=== PATIENT | female | born 1990 | race Caucasian/White ===

== ENCOUNTER 2017-11-08 18:17 | Emergency (ER) | payer BC ==
[2017-11-08 18:49] VITALS: BP 114/78
--- NOTE | 2017-11-08 19:40 | EDM.PDOC ---
ED HPI GENERAL MEDICAL PROBLEM - General Chief Complaint: Respiratory Problem Stated Complaint: COUGH,FEVER HURTS TO BREATH/PAIN Time Seen by Provider: 11/08/17 19:22 Source of Information: Reports: Patient - History of Present Illness INITIAL COMMENTS - FREE TEXT/NARRATIVE: Patient is here for evaluation of headache, diffuse myalgias and dry cough. She was evaluated in the clinic yesterday where she tested negative for influenza and strep. Patient has not been eating, she has been tolerating fluids but has not been drinking much fluids. Cough has worsened and become slightly productive for clear/yellow mucus. She's had more congestion and rhinorrhea. She denies he did but no episodes of vomiting. She had one episode of diarrhea today. LMP 10/28/2017. 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 Hernandez - Recreational Drug Use Recreational Drug Use: No ED ROS GENERAL - Review of Systems Review Of Systems: See Below Constitutional: Reports: Fever, Chills, Malaise, Weakness, Fatigue HEENT: Reports: Sinus Problem. Denies: Ear Discharge, Ear Pain, Throat Pain, Throat Swelling Respiratory: Reports: Pleuritic Chest Pain, Cough. Denies: Shortness of Breath , Wheezing, Sputum, Hemoptysis Cardiovascular: Reports: No Symptoms GI/Abdominal: Reports: Decreased Appetite. Denies: Abdominal Pain, Diarrhea, Nausea, Vomiting Musculoskeletal: Reports: Back Pain, Muscle Pain. Denies: Neck Pain Skin: Reports: No Symptoms Neurological: Reports: No Symptoms Psychiatric: Reports: No Symptoms ED EXAM, GENERAL - Physical Exam Exam: See Below Exam Limited By: No Limitations General Appearance: Alert, WD/WN, Mild Distress, Other (Patient is ill in appearance) Ears: Normal External Exam, Normal Canal, Normal TMs Nose: Normal Inspection, Nasal Drainage (Periodic) Throat/Mouth: Normal Inspection, Normal Oropharynx, Other (Clear postnasal drainage) Head: Atraumatic, Normocephalic Neck: Normal Inspection, Supple, Tender Lateral (left). No: Lymphadenopathy (L) , Lymphadenopathy (R) Respiratory/Chest: No Respiratory Distress, No Accessory Muscle Use, Wheezing ( Mild/scattered bilaterally). No: Crackles, Rales, Rhonchi Cardiovascular: Normal Peripheral Pulses, Regular Rate, Rhythm, No Murmur GI/Abdominal: Normal Bowel Sounds, Soft, Tender (Diffuse/mild) Back Exam: Normal Inspection, Paraspinal Tenderness (Muscular). No: Vertebral Tenderness Extremities: Normal Inspection, Normal Range of Motion Neurological: Alert, Oriented, CN II-XII Intact Psychiatric: Normal Affect, Normal Mood Skin Exam: Warm, Dry, Intact Lymphatic: No Adenopathy Course - Vital Signs Last Recorded V/S: Last Vital Signs Temp 101.7 F H 11/08/17 18:46 Pulse 85 11/08/17 18:46 Resp 20 11/08/17 18:46 BP 114/78 11/08/17 18:46 Pulse Ox 94 L 11/08/17 18:46 - Orders/Labs/Meds Orders: Active Orders 24 hr Category Date Time Status CXR [Chest 2V] [CR] Stat Exams 11/08/17 21:53 Taken Sodium Chloride 0.9% [Normal Saline] 1,000 ml Med 11/08/17 21:29 Active IV ONETIME Medication Orders Sodium Chloride (Normal Saline) 1,000 mls @ 250 mls/hr IV ONETIME ONE Stop: 11/09/17 01:28 Last Admin: 11/08/17 21:52 Dose: 250 mls/hr Labs: Laboratory Tests 11/08/17 11/08/17 11/08/17 Range/Units 19:47 19:47 21:10 WBC 11.98 H (3.98-10.04) K/mm3 RBC 4.86 (3.98-5.22) M/mm3 Hgb 15.0 (11.2-15.7) gm/L Hct 43.9 (34.1-44.9) % MCV 90.3 (79.4-94.8) fl MCH 30.9 (25.6-32.2) pg MCHC 34.2 (32.2-35.5) g/dl RDW Std Deviation 42.5 (36.4-46.3) fL Plt Count 220 (182-369) K/mm3 MPV 9.4 (9.4-12.3) fl Neutrophils % (Manual) 60 (40-60) % Band Neutrophils % 5 (0-10) % Lymphocytes % (Manual) 26 (20-40) % Atypical Lymphs % 0 % Monocytes % (Manual) 7 (2-10) % Eosinophils % (Manual) 2 (0.7-5.8) % Basophils % (Manual) 0 L (0.1-1.2) Platelet Estimate Adequate RBC Morph Comment Normal Sodium 136 (136-145) mEq/L Potassium 3.5 (3.5-5.1) mEq/L Chloride 101 (98-107) mEq/L Carbon Dioxide 25 (21-32) mEq/L Anion Gap 13.5 (5-15) BUN 12 (7-18) mg/dL Creatinine 0.9 (0.55-1.02) mg/dL Est Cr Clr Drug Dosing 74.26 mL/min Estimated GFR (MDRD) > 60 (>60) mL/min BUN/Creatinine Ratio 13.3 L (14-18) Glucose 86 (74-106) mg/dL Calcium 9.1 (8.5-10.1) mg/dL Total Bilirubin 0.9 (0.2-1.0) mg/dL AST 16 (15-37) U/L ALT 40 (14-59) U/L Alkaline Phosphatase 86 (46-116) U/L C-Reactive Protein 4.9 H* (<1.0) mg/dL Total Protein 7.2 (6.4-8.2) g/dl Albumin 3.7 (3.4-5.0) g/dl Globulin 3.5 gm/dL Albumin/Globulin Ratio 1.1 (1-2) Urine Color Dark yellow (Yellow) Urine Appearance Cloudy H (Clear) Urine pH 6.0 (5.0-8.0) Ur Specific [place] 1.020 (1.005-1.030) Urine Protein 1+ H (Negative) Urine Glucose (UA) Negative (Negative) Urine Ketones 3+ H (Negative) Urine Occult Blood Negative (Negative) Urine Nitrite Positive H (Negative) Urine Bilirubin 2+ H (Negative) Urine Urobilinogen 2.0 H (0.2-1.0) Ur Leukocyte Esterase Negative (Negative) Urine RBC Not seen (0-5) /hpf Urine WBC 0-5 (0-5) /hpf Ur Epithelial Cells 0-5 (0-5) /hpf Urine Bacteria Few (FEW) /hpf Urine Mucus Many H (FEW) /hpf Urine HCG, Qual (NEGATIVE) 11/08/17 Range/Units 21:10 WBC (3.98-10.04) K/mm3 RBC (3.98-5.22) M/mm3 Hgb (11.2-15.7) gm/L Hct (34.1-44.9) % MCV (79.4-94.8) fl MCH (25.6-32.2) pg MCHC (32.2-35.5) g/dl RDW Std Deviation (36.4-46.3) fL Plt Count (182-369) K/mm3 MPV (9.4-12.3) fl Neutrophils % (Manual) (40-60) % Band Neutrophils % (0-10) % Lymphocytes % (Manual) (20-40) % Atypical Lymphs % % Monocytes % (Manual) (2-10) % Eosinophils % (Manual) (0.7-5.8) % Basophils % (Manual) (0.1-1.2) Platelet Estimate RBC Morph Comment Sodium (136-145) mEq/L Potassium (3.5-5.1) mEq/L Chloride (98-107) mEq/L Carbon Dioxide (21-32) mEq/L Anion Gap (5-15) BUN (7-18) mg/dL Creatinine (0.55-1.02) mg/dL Est Cr Clr Drug Dosing mL/min Estimated GFR (MDRD) (>60) mL/min BUN/Creatinine Ratio (14-18) Glucose (74-106) mg/dL Calcium (8.5-10.1) mg/dL Total Bilirubin (0.2-1.0) mg/dL AST (15-37) U/L ALT (14-59) U/L Alkaline Phosphatase (46-116) U/L C-Reactive Protein (<1.0) mg/dL Total Protein (6.4-8.2) g/dl Albumin (3.4-5.0) g/dl Globulin gm/dL Albumin/Globulin Ratio (1-2) Urine Color (Yellow) Urine Appearance (Clear) Urine pH (5.0-8.0) Ur Specific [place] (1.005-1.030) Urine Protein (Negative) Urine Glucose (UA) (Negative) Urine Ketones (Negative) Urine Occult Blood (Negative) Urine Nitrite (Negative) Urine Bilirubin (Negative) Urine Urobilinogen (0.2-1.0) Ur Leukocyte Esterase (Negative) Urine RBC (0-5) /hpf Urine WBC (0-5) /hpf Ur Epithelial Cells (0-5) /hpf Urine Bacteria (FEW) /hpf Urine Mucus (FEW) /hpf Urine HCG, Qual Negative (NEGATIVE) Meds: Medications Generic Name Dose Route Start Last Admin Trade Name Freq PRN Reason Stop Dose Admin Sodium Chloride 1,000 mls @ 250 mls/hr 11/08/17 21:29 11/08/17 21:52 Normal Saline IV 11/09/17 01:28 250 mls/hr ONETIME ONE Administration Discontinued Medications Generic Name Dose Route Start Last Admin Trade Name Freq PRN Reason Stop Dose Admin Acetaminophen 650 mg 11/08/17 21:53 11/08/17 22:00 Tylenol PO 11/08/17 21:54 650 mg NOW ONE Administration Sodium Chloride 1,000 mls @ 999 mls/hr 11/08/17 19:38 11/08/17 19:51 Normal Saline IV 11/08/17 20:38 999 mls/hr ONETIME ONE Administration Ketorolac Tromethamine 30 mg 11/08/17 19:38 11/08/17 19:50 Toradol IVPUSH 11/08/17 19:39 30 mg ONETIME ONE Administration - Re-Assessments/Exams Free Text/Narrative Re-Assessment/Exam: Patient had 30 mg ketorolac IV and 650 mg Tylenol by mouth and significant improvement in symptoms with this as well as 2 L of fluid. WBC 11,980 with 60% neutrophils and 5 bands. CRP 4.9. CXR reviewed with Dr Rivera, no sign of consolidation or infiltrate. Still suspect viral etiology even though influenza was negative in the clinic. These can be false negative as well. Recommend supportive care of rest/fluids/alternating Tylenol and ibuprofen as needed for fever/myalgias. Patient is to follow-up in the clinic if symptoms not significantly were improved over the next few days or certainly return to the emergency room if needed. 11/08/17 22:41 11/08/17 23:28 Departure - Departure Time of Disposition: 23:29 Disposition: Home, Self-Care 01 Condition: Good Clinical Impression: Cough, Fever - Discharge Information Instructions: Cough, Adult, [id number], Cough, Adult Referrals: PCP,None [Primary Care Provider] - Forms: ED Department Discharge Additional Instructions: You'll be discharged home. I recommend that you increase your fluid intake. Alternate Tylenol and ibuprofen as needed for fever, headaches and muscle aches. Resume diet as you feel better, start with a very bland diet, no sugar/spice/ dairy foods. Follow-up in clinic if symptoms not significantly improved over the next few days. Certainly return to emergency room if any worsening. - My Orders Last 24 Hours: My Active Orders 11/08/17 21:29 Sodium Chloride 0.9% [Normal Saline] 1,000 ml IV ONETIME 11/08/17 21:53 CXR [Chest 2V] [CR] Stat - Assessment/Plan Last 24 Hours: My Active Orders 11/08/17 21:29 Sodium Chloride 0.9% [Normal Saline] 1,000 ml IV ONETIME 11/08/17 21:53 CXR [Chest 2V] [CR] Stat
[2017-11-08] MEDS: Ketorolac 30 MG/ML SDV IVPUSH ONE (19:50)
[2017-11-08] MEDS: Sodium Chloride 0.9% 1,000 ML IV ONE ×2 (19:51→21:52)
[2017-11-08] MEDS: Acetaminophen 325 MG Tab PO ONE (22:00)
--- NOTE | 2017-11-09 07:16 | CR ---
Chest: Two views of the chest were obtained. Comparison: No prior chest x-ray. Heart size and mediastinum are normal. Left-sided perihilar markings are mildly increased. Lungs otherwise are clear. Bony structures are unremarkable. Impression: 1. Mild increased left-sided perihilar markings suspicious for focal bronchitis or peribronchial pneumonia. 2. Chest x-ray is otherwise unremarkable. Diagnostic code #3
== END 2017-11-08 23:35 | disposition home or self-care (01) ==
LOC: JD.ED 18:17
DX: R50.9 Fever, unspecified (principal); R05 Cough; F17.210 Nicotine dependence, cigarettes, uncomplicated; Z79.899 Other long term (current) drug therapy
CPT/HCPCS: 36415; 71046; 80053; 81001; 81025; 85025; 86140; 96361; 96374; 99284; A9270; J1885; J7040

== ENCOUNTER 2018-11-15 08:00 | Inpatient (IN) | payer BC ==
[2018-11-20] MEDS ORDERED: ceFAZolin 2 GM in Premix Bag 1 BAG IV ONE (04:52)
[2018-11-20] MEDS ORDERED: Citric Acid/Sodium Citrate Solution 30 ML Cup PO ONE (04:52)
[2018-11-20] MEDS ORDERED: Sodium Chloride 0.9% 10 ML Syringe FLUSH PRN (04:52)
[2018-11-20] MEDS ORDERED: Metoclopramide 10 MG/2 ML SDV IVPUSH ONE (04:52)
[2018-11-20] MEDS ORDERED: Nalbuphine 20 MG/ML 1 ML Syringe IVPUSH PRN (04:52)
[2018-11-20] MEDS ORDERED: Lactated Ringers 1,000 ML IV SCH (05:00)
[2018-11-20] MEDS ORDERED: Oxytocin/Lactated Ringers 10 UNIT/1,000 ML BAG IV SCH (05:00)
[2018-11-20] MEDS ORDERED: Citric Acid/Sodium Citrate Solution 30 ML Cup ONE (06:12)
[2018-11-20] MEDS ORDERED: Ondansetron 4 MG/2 ML SDV ONE (06:17)
[2018-11-20] MEDS ORDERED: Lactated Ringers 2,000 ML ONE (06:17)
[2018-11-20] MEDS ORDERED: Oxytocin 10 Units/1 ML SDV ONE (06:17)
[2018-11-20] MEDS ORDERED: Ketorolac 30 MG/ML SDV ONE (06:17)
[2018-11-20] MEDS ORDERED: ceFAZolin 1 GM Vial ONE (06:17)
[2018-11-20] MEDS ORDERED: Morphine PF 1 MG/ML Amp ONE (06:18)
[2018-11-20] MEDS ORDERED: Bupivacaine 0.75%/D5W 2 ML Amp ONE (06:24)
--- NOTE | 2018-11-20 06:36 | PCM.PREANE ---
Preanesthetic Assessment - Procedure Proposed Procedure: repeat c section - Anesthesia/Transfusion/Family Hx Anesthesia History: Prior Anesthesia Without Reaction Family History of Anesthesia Reaction: No Transfusion History: No Prior Transfusion(s) Type of Transfusion Reactions: Reports: Unknown - Review of Systems General: No Symptoms Pulmonary: Cough (has a cold the last month-thick dark yellow) Cardiovascular: No Symptoms Gastrointestinal: Nausea (this am- nerves) Neurological: No Symptoms Other: Reports: None - Physical Assessment NPO Status Date: 11/19/18 NPO Status Time: 23:55 Pulse: 89 O2 Sat by Pulse Oximetry: 98 Respiratory Rate: 16 Blood Pressure: 114/75 Temperature: 98.6 F Vital Signs: Last Vital Signs Temp 98.6 F 11/20/18 05:48 Pulse 89 11/20/18 05:48 Resp 16 11/20/18 05:48 BP 114/75 11/20/18 05:48 Pulse Ox 98 11/20/18 05:48 Height: 5 ft 2 in Weight: 86.545 kg ASA Class: 2 Mental Status: Alert & Oriented x3 Airway Class: Mallampati = 1 Dentition: Reports: Normal Dentition Thyro-Mental Finger Breadths: 3 Mouth Opening Finger Breadths: 3 ROM/Head Extension: Full Lungs: Clear to Auscultation, Normal Respiratory Effort Cardiovascular: Regular Rate, Regular Rhythm - Lab Values: Laboratory Last Values WBC 18.31 K/mm3 (3.98-10.04) H 11/18/18 10:47 RBC 3.95 M/mm3 (3.98-5.22) L 11/18/18 10:47 Hgb 12.7 gm/L (11.2-15.7) 11/18/18 10:47 Hct 37.2 % (34.1-44.9) 11/18/18 10:47 MCV 94.2 fl (79.4-94.8) 11/18/18 10:47 MCH 32.2 pg (25.6-32.2) 11/18/18 10:47 MCHC 34.1 g/dl (32.2-35.5) 11/18/18 10:47 RDW Std Deviation 46.0 fL (36.4-46.3) 11/18/18 10:47 Plt Count 532 K/mm3 (182-369) H 11/18/18 10:47 MPV 10.1 fl (9.4-12.3) 11/18/18 10:47 Neut % (Auto) 72.8 % (34.0-71.1) H 11/18/18 10:47 Lymph % (Auto) 16.9 % (19.3-51.7) L 11/18/18 10:47 [place] % (Auto) 7.0 % (4.7-12.5) 11/18/18 10:47 Eos % (Auto) 2.2 (0.7-5.8) 11/18/18 10:47 Baso % (Auto) 0.2 % (0.1-1.2) 11/18/18 10:47 Neut # (Auto) 13.32 K/mm3 (1.56-6.13) H 11/18/18 10:47 Lymph # (Auto) 3.09 K/mm3 (1.18-3.74) 11/18/18 10:47 [place] # (Auto) 1.28 K/mm3 (0.24-0.36) H 11/18/18 10:47 Eos # (Auto) 0.41 K/mm3 (0.04-0.36) H 11/18/18 10:47 Baso # (Auto) 0.04 K/mm3 (0.01-0.08) 11/18/18 10:47 Manual Slide Review Normal smear 11/18/18 10:47 Blood Type A POSITIVE 11/18/18 10:47 Gel Antibody Screen Negative 11/18/18 10:47 - Allergies Allergies/Adverse Reactions: Allergies Allergy/AdvReac Type Severity Reaction Status Date / Time No Known Allergies Allergy Verified 09/22/16 08:51 - Blood Blood Available: No - Acknowledgements Anesthesia Type Planned: Spinal Pt an Appropriate Candidate for the Planned Anesthesia: Yes Alternatives and Risks of Anesthesia Discussed w Pt/Guardian: Yes Pt/Guardian Understands and Agrees with Anesthesia Plan: Yes PreAnesthesia Questionnaire HEENT History: Reports: None Cardiovascular History: Reports: None Respiratory History: Reports: Other (See Below) (has a cold) Gastrointestinal History: Reports: GERD (with preg) Genitourinary History: Reports: None 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: , Other (See Below) : 3 (38 weeks) Para: 2 Other OB/BYN History: Prior Section Musculoskeletal History: Reports: None Psychiatric History: Reports: Anxiety, Depression, Suicide Attempt Other Psychiatric History: On Prozac for depression - Infectious Disease History Infectious Disease History: 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, Human Papilloma Virus (HPV), Other (See Below) Other Infectious Disease History: herpes simplex 2 - Past Surgical History HEENT Surgical History: Reports: Adenoidectomy, Tonsillectomy, Other (See Below) Other HEENT Surgeries/Procedures: grafting surgery to bilateral ears due to tubes, chronic ear infections Female Surgical History: Reports: Section - SUBSTANCE USE Smoking Status *Q: Current Every Day Smoker Tobacco Use Within Last Twelve Months: Cigarettes Second Hand Smoke Exposure: Yes Days Per Week of Alcohol Use: 0 Recreational Drug Use History: No - HOME MEDS Home Medications: Home Meds FLUoxetine [PROzac] 20 mg PO DAILY 09/22/16 [History] Loratadine [Allergy] 10 mg PO DAILY PRN 09/22/16 [History] PNV95/Ferrous Fumarate/FA [ Tablet] 1 each PO DAILY 08/30/18 [History] Nicotine [Nicotine Patch] 14 mg TD DAILY 11/20/18 [History] buPROPion [Wellbutrin SR] 150 mg PO DAILY 11/20/18 [History] - CURRENT (IN HOUSE) MEDS Current Meds: Current Medications Lactated Ringer's (Ringers, Lactated) 1,000 mls @ 125 mls/hr IV ASDIRECTED CHEYANNE Oxytocin/Lactated Ringer's (Pitocin In Lr 10 Units/1,000 Ml) 10 unit in 1,000 mls @ 100 mls/hr IV ASDIRECTED CHEYANNE; Protocol Nalbuphine HCl (Nubain) 10 mg IVPUSH Q2H PRN PRN Reason: pain Sodium Chloride (Saline Flush) 10 ml FLUSH ASDIRECTED PRN PRN Reason: Keep Vein Open Discontinued Medications Bupivacaine HCl/Dextrose (Marcaine 0.75% Spinal) Confirm Administered Dose 2 ml .ROUTE .STK-MED ONE Stop: 11/20/18 06:25 Cefazolin Sodium (Ancef) Confirm Administered Dose 2 gm .ROUTE .STK-MED ONE Stop: 11/20/18 06:18 Citric Acid/Sodium Citrate (Bicitra Solution) 30 ml PO ONETIME ONE Stop: 11/20/18 04:53 Citric Acid/Sodium Citrate (Bicitra Solution) Confirm Administered Dose 30 ml .ROUTE .STK-MED ONE Stop: 11/20/18 06:13 Cefazolin Sodium/Dextrose 2 gm (/ Premix) 50 mls @ 100 mls/hr IV ONETIME ONE Stop: 11/20/18 05:21 Lactated Ringer's (Ringers, Lactated) Confirm Administered Dose 2,000 mls @ as directed .ROUTE .STK-MED ONE Stop: 11/20/18 06:18 Lidocaine HCl (Xylocaine-Mpf 1%) Confirm Administered Dose 5 mls @ as directed .ROUTE .STK-MED ONE Stop: 11/20/18 06:25 Ketorolac Tromethamine (Toradol) Confirm Administered Dose 30 mg .ROUTE .STK- MED ONE Stop: 11/20/18 06:18 Metoclopramide HCl (Reglan) 10 mg IVPUSH ONETIME ONE Stop: 11/20/18 04:53 Morphine Sulfate (Duramorph Pf) Confirm Administered Dose 1 mg .ROUTE .STK-MED ONE Stop: 11/20/18 06:19 Ondansetron HCl (Zofran) Confirm Administered Dose 4 mg .ROUTE .STK-MED ONE Stop: 11/20/18 06:18 Oxytocin (Pitocin) Confirm Administered Dose 10 unit .ROUTE .STK-MED ONE Stop: 11/20/18 06:18
[2018-11-20] MEDS ORDERED: Bupivacaine 0.5% 30 ML SDV ONE (07:17)
[2018-11-20] MEDS ORDERED: ePHEDrine/Normal Saline 25 MG/5 ML Syringe ONE (08:02)
[2018-11-20] MEDS ORDERED: diphenhydrAMINE 50 MG/ML SDV IVPUSH PRN ×2 (08:04→09:59)
[2018-11-20] MEDS ORDERED: Ondansetron 4 MG/2 ML SDV IVPUSH PRN (08:04)
[2018-11-20] MEDS ORDERED: fentaNYL 100 MCG/2 ML SDV IVPUSH PRN (08:04)
--- NOTE | 2018-11-20 08:42 | PCM.OPNOTE ---
- General Post-Op/Procedure Note Date of Surgery/Procedure: 11/20/18 Operative Procedure(s): repeat section Findings: viable male, weight 7#1oz, 9/9 APGARS, at 0810 Pre Op Diagnosis: prior with very thin lower uterine segment Post-Op Diagnosis: Same Anesthesia Technique: Spinal Primary Surgeon: Nolvia Llanes Anesthesia Provider: Polo Ventura Leaf Tinner: Justo Gipson Fluid Replacement, Intraop: 2,400 Output, Urine Amount: 75 EBL in mLs: 700 Complications: None Condition: Good Free Text/Narrative:: The patient was taken to the operating room where epidural anesthesia was dosed to surgical levels without difficulty. The patient was prepped and draped in the usual sterile fashion in the dorsal supine position with a leftward tilt. A Pfannenstiel skin incision was made with the scalpel and carried through to the underlying layer of fascia. The fascia was incised in the midline and extended laterally using Carter scissors. Pasha clamps were used to elevate the superior aspect of the fascial incision, which was elevated, and the underlying rectus muscles were dissected off bluntly and using Carter scissors. Attention was then turned to the inferior aspect of the fascial incision, which in similar fashion was grasped with Pasha clamps, elevated, and the underlying rectus muscles were dissected off bluntly and using the carter. The rectus muscles were dissected in the midline. The peritoneum was entered bluntly; this incision was extended superiorly and inferiorly with good visualization of the bladder. The bladder blade was inserted. The vesicouterine peritoneum was identified and entered sharply using Metzenbaum scissors. This incision was extended laterally and the bladder flap was created digitally. The bladder blade was reinserted. The somewhat thin lower uterine segment was incised in a transverse fashion using the scalpel and with digital traction. Clear fluid was noted. The was subsequently delivered by flexing the head to the incision. Body and shoulders followed without difficulty. The cord was clamped and cut. The infant was subsequently handed to the awaiting coiled tubing supervisor whose presence had been requested.. The placenta was delivered spontaneously intact with a three-vessel cord noted. The uterus was exteriorized and cleared of all clots and debris. The uterine incision was repaired in 2 layers using 0 monocryl. Hemostasis was visualized. Hemostasis was visualized bilaterally. The uterus was returned to the abdomen. The uterine incision was reexamined and it was noted to be hemostatic. The pelvis was copiously irrigated. The fascia was closed with 1 PDS suture, and the skin was closed with 3-0 monocryl. Sponge, lap, and instrument counts were correct x2. The patient was stable at the completion of the procedure and was subsequently transferred to the recovery room in stable condition.
--- NOTE | 2018-11-20 08:44 | PCM.POSTAN ---
POST ANESTHESIA ASSESSMENT - MENTAL STATUS Mental Status: Alert, Oriented - VITAL SIGNS Pulse Rate: 86 SaO2: 96 Resp Rate: 9 Blood Pressure: 115/65 Temperature: 97.7 F - RESPIRATORY Respiratory Status: Respiratory Rate WNL, Airway Patent, O2 Saturation Stable, Supplemental Oxygen - CARDIOVASCULAR CV Status: Pulse Rate WNL, Blood Pressure Stable - GASTROINTESTINAL GI Status: No Symptoms - PAIN Pain Score: 0 - POST OP HYDRATION Hydration Status: Adequate & Stable
[2018-11-20] MEDS ORDERED: Dextrose 5%-Lactated Ringers 1,000 ML IV SCH (09:59)
[2018-11-20] MEDS ORDERED: Lanolin 100% Cream 7 GM Tube TOP PRN (09:59)
[2018-11-20] MEDS ORDERED: Ibuprofen 600 MG Tab PO PRN (09:59)
[2018-11-20] MEDS ORDERED: Naloxone 0.4 MG/ML SDV IVPUSH PRN (09:59)
[2018-11-20] MEDS ORDERED: ePHEDrine 50 MG/ML SDV IVPUSH PRN (09:59)
[2018-11-20] MEDS: Ketorolac 30 MG/ML SDV IVPUSH SCH ×3 (14:30→20:33)
[2018-11-20] MEDS: Nicotine 14 MG/24 Hr Patch TRDERM SCH (21:49)
[2018-11-20] MEDS: FLUOXETINE 20 MG PO SCH (22:00)
[2018-11-20] MEDS: BUPROPION 150 MG PO SCH (22:00)
[2018-11-21] MEDS: Ketorolac 30 MG/ML SDV IVPUSH SCH (03:12)
[2018-11-21] MEDS: Ibuprofen 600 MG Tab PO PRN ×3 (09:15→21:04)
[2018-11-21] MEDS: BUPROPION 150 MG PO SCH (09:18)
[2018-11-21] MEDS: FLUOXETINE 20 MG PO SCH (09:18)
[2018-11-21] MEDS: Acetaminophen/oxyCODONE 325-5 MG Tab PO PRN (16:12)
[2018-11-22] MEDS: Acetaminophen/oxyCODONE 325-5 MG Tab PO PRN ×2 (00:10→06:54)
[2018-11-22] MEDS: Ibuprofen 600 MG Tab PO PRN (04:06)
--- NOTE | 2018-11-22 07:23 | PCM.PNPP ---
- General Info Date of Service: 11/21/18 Functional Status: Reports: Pain Controlled - Review of Systems General: Reports: No Symptoms HEENT: Reports: No Symptoms Pulmonary: Reports: No Symptoms Cardiovascular: Reports: No Symptoms Gastrointestinal: Reports: No Symptoms Genitourinary: Reports: No Symptoms Musculoskeletal: Reports: No Symptoms Skin: Reports: No Symptoms Neurological: Reports: No Symptoms Psychiatric: Reports: No Symptoms - General Info Date of Service: 11/21/18 - Patient Data Vital Signs - Most Recent: Last Vital Signs Temp 36.9 C 11/22/18 04:01 Pulse 87 11/22/18 04:02 Resp 16 11/22/18 04:01 BP 119/73 11/22/18 04:01 Pulse Ox 96 11/22/18 04:02 Weight - Most Recent: 86.545 kg I&O - Last 24 Hours: Intake & Output 11/21/18 11/22/18 11/22/18 22:59 06:59 14:59 Intake Total 480 Balance 480 Med Orders - Current: Current Medications Bupropion HCl (Wellbutrin Sr) 150 mg PO DAILY [facility] Last Admin: 11/21/18 09:18 Dose: Not Given Diphenhydramine HCl (Benadryl) 25 mg IVPUSH Q6H PRN PRN Reason: Itching or Nausea Last Admin: 11/20/18 12:22 Dose: 25 mg Emollient Ointment (Lansinoh Hpa) 0 gm TOP ASDIRECTED PRN PRN Reason: Sore Nipples Ephedrine Sulfate (Ephedrine Sulfate) 5 mg IVPUSH SEECOMMENT PRN PRN Reason: Other Fluoxetine HCl (Prozac) 20 mg PO DAILY [facility] Last Admin: 11/21/18 09:18 Dose: Not Given Ibuprofen (Motrin) 600 mg PO Q6H PRN PRN Reason: mild pain or fever Last Admin: 11/22/18 04:06 Dose: 600 mg Miscellaneous Information (Remove Patch) 1 ea TRDERM DAILY [facility] Last Admin: 11/21/18 09:18 Dose: Not Given Naloxone HCl (Narcan) 0.1 mg IVPUSH SEECOMMENT PRN PRN Reason: Respiratory Depression Nicotine (Habitrol) 14 mg TRDERM DAILY [facility] Last Admin: 11/20/18 21:49 Dose: Not Given Oxycodone/Acetaminophen (Percocet 325-5 Mg) 2 tab PO Q6H PRN PRN Reason: Pain (moderate 4-6) Last Admin: 11/22/18 06:54 Dose: 2 tab Discontinued Medications Bupivacaine HCl (Marcaine 0.5%) Confirm Administered Dose 30 ml .ROUTE .STK-MED ONE Stop: 11/20/18 07:18 Last Admin: 11/20/18 08:04 Dose: 20 ml Bupivacaine HCl/Dextrose (Marcaine 0.75% Spinal) Confirm Administered Dose 2 ml .ROUTE .STK-MED ONE Stop: 11/20/18 06:25 Cefazolin Sodium (Ancef) Confirm Administered Dose 2 gm .ROUTE .STK-MED ONE Stop: 11/20/18 06:18 Citric Acid/Sodium Citrate (Bicitra Solution) 30 ml PO ONETIME ONE Stop: 11/20/18 04:53 Last Admin: 11/20/18 07:08 Dose: 30 ml Citric Acid/Sodium Citrate (Bicitra Solution) Confirm Administered Dose 30 ml .ROUTE .STK-MED ONE Stop: 11/20/18 06:13 Last Admin: 11/20/18 19:25 Dose: Not Given Diphenhydramine HCl (Benadryl) 25 mg IVPUSH Q6H PRN PRN Reason: pruritis Ephedrine Sulfate (Ephedrine In Ns) Confirm Administered Dose 25 mg .ROUTE .STK- MED ONE Stop: 11/20/18 08:03 Fentanyl (Sublimaze) 50 mcg IVPUSH Q5M PRN PRN Reason: Pain Cefazolin Sodium/Dextrose 2 gm (/ Premix) 50 mls @ 100 mls/hr IV ONETIME ONE Stop: 11/20/18 05:21 Last Admin: 11/20/18 19:25 Dose: Not Given Lactated Ringer's (Ringers, Lactated) 1,000 mls @ 125 mls/hr IV ASDIRECTED [facility] Last Admin: 11/20/18 06:20 Dose: 125 mls/hr Oxytocin/Lactated Ringer's (Pitocin In Lr 10 Units/1,000 Ml) 10 unit in 1,000 mls @ 100 mls/hr IV ASDIRECTED [facility]; Protocol Lactated Ringer's (Ringers, Lactated) Confirm Administered Dose 2,000 mls @ as directed .ROUTE .STK-MED ONE Stop: 11/20/18 06:18 Lidocaine HCl (Xylocaine-Mpf 1%) Confirm Administered Dose 5 mls @ as directed .ROUTE .STK-MED ONE Stop: 11/20/18 06:25 Dextrose/Lactated Ringer's (Dextrose 5%-Lactated Ringers) 1,000 mls @ 125 mls/ hr IV ASDIRECTED [facility] Stop: 11/20/18 17:58 Ibuprofen (Motrin) 600 mg PO Q6H PRN PRN Reason: mild pain or fever Ketorolac Tromethamine (Toradol) Confirm Administered Dose 30 mg .ROUTE .STK- MED ONE Stop: 11/20/18 06:18 Ketorolac Tromethamine (Toradol) 30 mg IVPUSH Q6H [facility] Stop: 11/20/18 22:00 Last Admin: 11/20/18 19:24 Dose: Not Given Ketorolac Tromethamine (Toradol) 30 mg IVPUSH Q6H [facility] Stop: 11/21/18 02:31 Last Admin: 11/21/18 03:12 Dose: 30 mg Metoclopramide HCl (Reglan) 10 mg IVPUSH ONETIME ONE Stop: 11/20/18 04:53 Last Admin: 11/20/18 07:08 Dose: 10 mg Morphine Sulfate (Duramorph Pf) Confirm Administered Dose 1 mg .ROUTE .STK-MED ONE Stop: 11/20/18 06:19 Nalbuphine HCl (Nubain) 10 mg IVPUSH Q2H PRN PRN Reason: pain Ondansetron HCl (Zofran) Confirm Administered Dose 4 mg .ROUTE .STK-MED ONE Stop: 11/20/18 06:18 Ondansetron HCl (Zofran) 4 mg IVPUSH ONETIME PRN PRN Reason: Nausea/Vomiting Oxytocin (Pitocin) Confirm Administered Dose 10 unit .ROUTE .STK-MED ONE Stop: 11/20/18 06:18 Sodium Chloride (Saline Flush) 10 ml FLUSH ASDIRECTED PRN PRN Reason: Keep Vein Open - Infant Interaction Support Person: - Recovery Exam Fundal Tone: Firm Fundal Level: 2 Fingerbreadths Below Umbilicus Fundal Placement: Midline Lochia Amount: Small Lochia Color: Rubra/Red Perineum Description: Intact, Minimal Bruising/Swelling Episiotomy/Laceration: None Bladder Status: Voiding Urinary Elimination: Voided - Exam General: Alert, Oriented HEENT: Pupils Equal Neck: Supple Lungs: Clear to Auscultation, Normal Respiratory Effort Cardiovascular: Regular Rate, Regular Rhythm GI/Abdominal Exam: Normal Bowel Sounds, Soft, Non-Tender, No Organomegaly, No Distention, No Abnormal Bruit, No Mass, Pelvis Stable Extremities: Normal Inspection, Normal Range of Motion, Non-Tender, No Pedal Edema, Normal Capillary Refill Skin: Warm, Dry, Intact Wound/Incisions: Healing Well Neurological: No New Focal Deficit Psy/Mental Status: Alert, Normal Affect, Normal Mood - Problem List Review Problem List Initiated/Reviewed/Updated: Yes - My Orders Last 24 Hours: My Active Orders 11/21/18 09:00 Remove Patch 1 ea TRDERM DAILY 11/21/18 15:34 Acetaminophen/oxyCODONE [Percocet 325-5 MG] 2 tab PO Q6H PRN - Assessment Assessment:: Term POD1 Doing great. Probable discharge tomorrow
[2018-11-22] MEDS: Nicotine 14 MG/24 Hr Patch TRDERM SCH (08:17)
[2018-11-22] MEDS: FLUOXETINE 20 MG PO SCH (08:18)
[2018-11-22] MEDS: BUPROPION 150 MG PO SCH (08:18)
[2018-11-22 08:41] VITALS: BP 128/69
--- NOTE | 2018-11-23 05:46 | PCM.HPR ---
H & P Addendum review - H & P Addendum Review Date of Original H & P: 11/06/18 (Paper copy on chart from clinic) Date Reviewed: 11/20/18 Time Reviewed: 07:00 Patient was Examined: No Changes
== END 2018-11-22 10:20 | disposition home or self-care (01) | DRG 540 ==
LOC: JD.OB 11-20 05:21
PROVIDERS: ADMIT Obstetrics & Gynecology; ATTEND Obstetrics & Gynecology
PROC: 10D00Z1 Extraction of Products of Conception, Low, Open Approach (ICD-10-PCS; principal; 2018-11-20)
PROC: 3E0R3BZ Introduction of Anesthetic Agent into Spinal Canal, Percutaneous Approach (ICD-10-PCS; 2018-11-20)
DX: O62.1 Secondary uterine inertia (principal); O77.9 Labor and delivery complicated by fetal stress, unspecified; O60.14X0 Preterm labor third trimester with preterm delivery third trimester, not applicable or unspecified; O99.333 Smoking (tobacco) complicating pregnancy, third trimester; F17.210 Nicotine dependence, cigarettes, uncomplicated; O34.211 Maternal care for low transverse scar from previous cesarean delivery; O99.343 Other mental disorders complicating pregnancy, third trimester; F32.9 Major depressive disorder, single episode, unspecified; Z3A.36 36 weeks gestation of pregnancy; Z37.0 Single live birth
CPT/HCPCS: 01961; 36415; 59025; 85025; 86592; 86850; 86900; 86901; 94762; A9270-GY; J0690; J1200; J1885; J2001; J2274; J2405; J2590; J2765; J3490; J7050; J7120

== ENCOUNTER 2021-01-20 05:16 | Inpatient (IN) | payer BC ==
[2021-01-20] MEDS ORDERED: ceFAZolin 2 GM in Premix Bag 1 BAG IV ONE (05:17)
[2021-01-20] MEDS ORDERED: Metoclopramide 10 MG/2 ML SDV IVPUSH ONE (05:17)
[2021-01-20] MEDS ORDERED: Citric Acid/Sodium Citrate Solution 30 ML Cup PO ONE (05:17)
[2021-01-20] MEDS ORDERED: Sodium Chloride 0.9% 10 ML Syringe FLUSH PRN (05:17)
[2021-01-20] MEDS ORDERED: Oxytocin/Lactated Ringers 10 UNIT/1,000 ML BAG IV SCH (05:30)
[2021-01-20] MEDS: Lactated Ringers 1,000 ML IV SCH ×2 (05:40→06:29)
[2021-01-20] MEDS ORDERED: Oxytocin 10 Units/1 ML SDV ONE ×2 (07:15→07:22)
[2021-01-20] MEDS ORDERED: Lactated Ringers 2,000 ML ONE (07:15)
[2021-01-20] MEDS ORDERED: Morphine PF 10 MG/10 ML SDV ONE (07:15)
[2021-01-20] MEDS ORDERED: ceFAZolin 1 GM Vial ONE (07:15)
[2021-01-20] MEDS ORDERED: Ondansetron 4 MG/2 ML SDV ONE (07:15)
[2021-01-20] MEDS ORDERED: Ketorolac 30 MG/ML SDV ONE (07:23)
[2021-01-20] MEDS ORDERED: Bupivacaine 0.5% 30 ML SDV ONE (07:30)
[2021-01-20] MEDS ORDERED: fentaNYL 100 MCG/2 ML SDV IVPUSH PRN (08:18)
[2021-01-20] MEDS ORDERED: diphenhydrAMINE 50 MG/ML SDV IVPUSH PRN ×2 (08:18→12:31)
[2021-01-20] MEDS ORDERED: Ondansetron 4 MG/2 ML SDV IVPUSH PRN (08:18)
--- NOTE | 2021-01-20 08:23 | PCM.PREANE ---
Preanesthetic Assessment - Procedure Proposed Procedure: Repeat C Section - Anesthesia/Transfusion/Family Hx Anesthesia History: Prior Anesthesia Without Reaction Family History of Anesthesia Reaction: No Transfusion History: No Prior Transfusion(s) Type of Transfusion Reactions: Reports: Unknown - Review of Systems General: No Symptoms Pulmonary: Cough, Sputum (Cold a couple weeks ago, improving. Occasional cough. Smoker 1/2 ppday currently. ) Cardiovascular: No Symptoms Gastrointestinal: Nausea, Other (GERD) Neurological: No Symptoms Other: Reports: Depression, Anxiety - Physical Assessment NPO Status Date: 01/19/21 NPO Status Time: 22:30 Vital Signs: Last Vital Signs Temp 37.1 C 01/20/21 05:33 Pulse 88 01/20/21 05:33 Resp 16 01/20/21 05:33 BP 117/57 L 01/20/21 05:33 Pulse Ox 95 01/20/21 05:33 Height: 1.57 m Weight: 86.818 kg ASA Class: 3 Mental Status: Alert & Oriented x3 Airway Class: Mallampati = 1 Dentition: Reports: Caries Thyro-Mental Finger Breadths: 3 Mouth Opening Finger Breadths: 3 ROM/Head Extension: Full Lungs: Clear to Auscultation, Normal Respiratory Effort Cardiovascular: Regular Rate, Regular Rhythm - Lab Values: Laboratory Last Values WBC 17.35 K/mm3 (3.98-10.04) H 01/20/21 05:50 RBC 3.81 M/mm3 (3.98-5.22) L 01/20/21 05:50 Hgb 12.5 gm/dl (11.2-15.7) 01/20/21 05:50 Hct 37.2 % (34.1-44.9) 01/20/21 05:50 MCV 97.6 fl (79.4-94.8) H 01/20/21 05:50 MCH 32.8 pg (25.6-32.2) H 01/20/21 05:50 MCHC 33.6 g/dl (32.2-35.5) 01/20/21 05:50 RDW Std Deviation 49.1 fL (36.4-46.3) H 01/20/21 05:50 Plt Count 423 K/mm3 (182-369) H D 01/20/21 05:50 MPV 10.5 fl (9.4-12.3) 01/20/21 05:50 Neut % (Auto) 70.2 % (34.0-71.1) 01/20/21 05:50 Lymph % (Auto) 19.5 % (19.3-51.7) 01/20/21 05:50 Fannin % (Auto) 7.4 % (4.7-12.5) 01/20/21 05:50 Eos % (Auto) 2.7 (0.7-5.8) 01/20/21 05:50 Baso % (Auto) 0.2 % (0.1-1.2) 01/20/21 05:50 Neut # (Auto) 12.18 K/mm3 (1.56-6.13) H 01/20/21 05:50 Lymph # (Auto) 3.38 K/mm3 (1.18-3.74) 01/20/21 05:50 Fannin # (Auto) 1.29 K/mm3 (0.24-0.36) H 01/20/21 05:50 Eos # (Auto) 0.47 K/mm3 (0.04-0.36) H 01/20/21 05:50 Baso # (Auto) 0.03 K/mm3 (0.01-0.08) 01/20/21 05:50 Manual Slide Review Abnormal smear 01/20/21 05:50 SARS-CoV-2 RNA (TRINA) Negative (NEGATIVE) 01/20/21 05:30 Blood Type A POSITIVE 01/20/21 05:50 Gel Antibody Screen Negative 01/20/21 05:50 - Allergies Allergies/Adverse Reactions: Allergies Allergy/AdvReac Type Severity Reaction Status Date / Time No Known Allergies Allergy Verified 01/20/21 05:27 - Blood Blood Available: Yes Product(s) Available: PRBC - Acknowledgements Anesthesia Type Planned: Spinal Pt an Appropriate Candidate for the Planned Anesthesia: Yes Alternatives and Risks of Anesthesia Discussed w Pt/Guardian: Yes Pt/Guardian Understands and Agrees with Anesthesia Plan: Yes PreAnesthesia Questionnaire HEENT History: Reports: None Cardiovascular History: Reports: None Respiratory History: Reports: COPD Gastrointestinal History: Reports: GERD Genitourinary History: Reports: UTI, Recurrent LOAD BUILDER History: Reports: , Other (See Below) Other OB/BYN History: Prior Sections, Abnormal Pap, HPV Musculoskeletal History: Reports: None Psychiatric History: Reports: Anxiety, Depression, Suicide Attempt Other Psychiatric History: On Prozac for depression. Suicide attempt in 2004. Endocrine/Metabolic History: Reports: Obesity/BMI 30+ - Infectious Disease History Infectious Disease History: 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, Human Papilloma Virus (HPV), Other (See Below) Other Infectious Disease History: herpes simplex 2 - Past Surgical History HEENT Surgical History: Reports: Adenoidectomy, Tonsillectomy, Other (See Below) Other HEENT Surgeries/Procedures: grafting surgery to bilateral ears due to tubes, chronic ear infections Female Surgical History: Reports: Section - SUBSTANCE USE Tobacco Use Status *Q: Current Every Day Tobacco User Tobacco Use Within Last Twelve Months: Cigarettes Recreational Drug Use History: No - HOME MEDS Home Medications: Home Meds FLUoxetine [PROzac] 20 mg PO DAILY 09/22/16 [History] Pnv No.95/Ferrous Fum/Folic AC [ Tablet] 1 each PO DAILY 08/30/18 [History] Cetirizine HCl [Zyrtec] 10 mg PO DAILY 01/19/21 [History] Omeprazole Magnesium [Prilosec Otc] 20 mg PO DAILY 01/19/21 [History] Ondansetron [Zofran ODT] 4 mg PO Q6H 01/19/21 [History] - CURRENT (IN HOUSE) MEDS Current Meds: Current Medications Diphenhydramine HCl (Diphenhydramine 50 Mg/Ml Sdv) 25 mg IVPUSH Q6H PRN PRN Reason: Pruritis Fentanyl (Fentanyl 100 Mcg/2 Ml Sdv) 50 mcg IVPUSH Q5M PRN PRN Reason: Pain Oxytocin/Lactated Ringer's (Pitocin In Lr 10 Units/1,000 Ml) 10 unit in 1,000 mls @ 100 mls/hr IV ASDIRECTED [facility] Lactated Ringer's (Ringers, Lactated) 1,000 mls @ 125 mls/hr IV ASDIRECTED [facility] Last Admin: 01/20/21 06:29 Dose: 999 mls/hr Documented by: Ondansetron HCl (Ondansetron 4 Mg/2 Ml Sdv) 4 mg IVPUSH ONETIME PRN PRN Reason: Nausea/Vomiting Sodium Chloride (Sodium Chloride 0.9% 10 Ml Syringe) 10 ml FLUSH ASDIRECTED PRN PRN Reason: Keep Vein Open Discontinued Medications Bupivacaine HCl (Bupivacaine 0.5% 30 Ml Sdv) Confirm Administered Dose 30 ml .ROUTE .STK-MED ONE Stop: 01/20/21 07:31 Cefazolin Sodium (Cefazolin 1 Gm Vial) Confirm Administered Dose 2 gm .ROUTE .STK-MED ONE Stop: 01/20/21 07:16 Citric Acid/Sodium Citrate (Citric Acid/Sodium Citrate Solution 30 Ml Cup) 30 ml PO ONETIME ONE Stop: 01/20/21 05:18 Last Admin: 01/20/21 07:27 Dose: 30 ml Documented by: Cefazolin Sodium/Dextrose 2 gm (/ Premix) 50 mls @ 100 mls/hr IV ONETIME ONE Stop: 01/20/21 05:46 Lactated Ringer's (Ringers, Lactated) Confirm Administered Dose 2,000 mls @ as directed .ROUTE .ST-MED ONE Stop: 01/20/21 07:16 Ketorolac Tromethamine (Ketorolac 30 Mg/Ml Sdv) Confirm Administered Dose 30 mg .ROUTE .STK-MED ONE Stop: 01/20/21 07:24 Metoclopramide HCl (Metoclopramide 10 Mg/2 Ml Sdv) 10 mg IVPUSH ONETIME ONE Stop: 01/20/21 05:18 Last Admin: 01/20/21 07:27 Dose: 10 mg Documented by: Morphine Sulfate (Morphine Pf 10 Mg/10 Ml Sdv) Confirm Administered Dose 10 mg .ROUTE .STK-MED ONE Stop: 01/20/21 07:16 Ondansetron HCl (Ondansetron 4 Mg/2 Ml Sdv) Confirm Administered Dose 4 mg .ROUTE .STK-MED ONE Stop: 01/20/21 07:16 Oxytocin (Oxytocin 10 Units/1 Ml Sdv) Confirm Administered Dose 10 unit .ROUTE .STK-MED ONE Stop: 01/20/21 07:16 Oxytocin (Oxytocin 10 Units/1 Ml Sdv) Confirm Administered Dose 10 unit .ROUTE .STK-MED ONE Stop: 01/20/21 07:23
--- NOTE | 2021-01-20 08:43 | PCM.POSTAN ---
POST ANESTHESIA ASSESSMENT - MENTAL STATUS Mental Status: Alert, Oriented - VITAL SIGNS Vital Signs: Last Vital Signs Temp 37.1 C 01/20/21 05:33 Pulse 88 01/20/21 05:33 Resp 16 01/20/21 05:33 BP 117/57 L 01/20/21 05:33 Pulse Ox 95 01/20/21 05:33 0837 126/66 95% 86 13 97.8F - RESPIRATORY Respiratory Status: Respiratory Rate WNL, Airway Patent, O2 Saturation Stable - CARDIOVASCULAR CV Status: Pulse Rate WNL, Blood Pressure Stable - GASTROINTESTINAL GI Status: No Symptoms - PAIN Pain Score: 0 - POST OP HYDRATION Hydration Status: Adequate & Stable
--- NOTE | 2021-01-20 08:46 | PCM.OPNOTE ---
- General Post-Op/Procedure Note Date of Surgery/Procedure: 01/20/21 Pre Op Diagnosis: prior , desires repeat Post-Op Diagnosis: Same Anesthesia Technique: General ET Tube Primary Surgeon: Nolvia Llanes Anesthesia Provider: Divya Bro Drop Hammer Setter Up: Landy Feldman Reason Drop Hammer Setter Up Was Necessary: safety Output, Urine Amount: 25 EBL in mLs: 712 Complications: None Condition: Good Free Text/Narrative:: The patient was taken to the operating room where spinal anesthesia was dosed to surgical levels without difficulty. The patient was prepped and draped in the usual sterile fashion in the dorsal supine position with a leftward tilt. A Pfannenstiel skin incision was made with the scalpel and carried through to the underlying layer of fascia. Left aspect of prior incision excised. The fascia was incised in the midline and extended laterally using Carter scissors. Pasha clamps were used to elevate the superior aspect of the fascial incision, which was elevated, and the underlying rectus muscles were dissected off bluntly and using Carter scissors. Attention was then turned to the inferior aspect of the fascial incision, which in similar fashion was grasped with Pasha clamps, elevated, and the underlying rectus muscles were dissected off bluntly and using the carter. The rectus muscles were dissected in the midline. The peritoneum was entered bluntly; this incision was extended superiorly and inferiorly with good visualization of the bladder. The bladder blade was inserted. Very thin lower uterine segment noted. The vesicouterine peritoneum was identified and entered sharply using Metzenbaum scissors. This incision was extended laterally and the bladder flap was created digitally. The bladder blade was reinserted. The lower uterine segment was incised in a transverse fashion using the scalpel and with digital traction. Clear fluid was noted. The was subsequently delivered by flexing the head to the incision. Body and shoulders followed without difficulty. The cord was clamped and cut. The infant was subsequently handed to the awaiting tearoom host/hostess whose presence had been requested.. The placenta was delivered spontaneously intact with a three-vessel cord noted. The uterus was exteriorized and cleared of all clots and debris. The uterine incision was repaired in 2 layers using 0 monocryl. Hemostasis was visualized. Hemostasis was visualized bilaterally. The uterus was returned to the abdomen. The uterine incision was reexamined and it was noted to be hemostatic. The pelvis was copiously irrigated. The fascia was closed with 1 PDS suture, and the skin was closed with 3-0 monocryl. Sponge, lap, and instrument counts were correct x2. The patient was stable at the completion of the procedure and was subsequently transferred to the recovery room in stable condition.
[2021-01-20] MEDS ORDERED: Acetaminophen/oxyCODONE 325-5 MG Tab PO PRN (12:31)
[2021-01-20] MEDS ORDERED: Naloxone 0.4 MG/ML SDV IVPUSH PRN (12:31)
[2021-01-20] MEDS ORDERED: ePHEDrine 50 MG/ML SDV IVPUSH PRN (12:31)
[2021-01-20] MEDS ORDERED: Dextrose 5%-Lactated Ringers 1,000 ML IV SCH (12:31)
[2021-01-20] MEDS: Ketorolac 30 MG/ML SDV IVPUSH SCH ×2 (14:34→20:14)
[2021-01-21] MEDS: Ketorolac 30 MG/ML SDV IVPUSH SCH (02:01)
--- NOTE | 2021-01-21 07:46 | PCM48HPAN ---
Post Anesthesia Note - EVALUATION WITHIN 48HRS OF ANESTHETIC Vital Signs in Normal Range: Yes Patient Participated in Evaluation: Yes Respiratory Function Stable: Yes Airway Patent: Yes Cardiovascular Function Stable: Yes Hydration Status Stable: Yes Pain Control Satisfactory: Yes Nausea and Vomiting Control Satisfactory: Yes Mental Status Recovered: Yes Vital Signs: Last Vital Signs Temp 36.8 C 01/21/21 04:38 Pulse 73 01/21/21 04:38 Resp 14 01/21/21 06:59 BP 121/58 L 01/21/21 04:38 Pulse Ox 96 01/21/21 06:59
[2021-01-21] MEDS: Acetaminophen/oxyCODONE 325-5 MG Tab PO PRN ×3 (10:33→21:08)
--- NOTE | 2021-01-21 11:10 | PCM.SN.2 ---
- Free Text/Narrative Note: Post Operative Progress Note POD #1 Subjective: Doing well overall. Ambulating without difficulty. Lochia minimal and decreasing since yesterday. Has not voided since Tate catheter was removed this morning. Feels like she has to urinate at this time. Passing flatus. Tolerating regular diet without nausea or vomiting. Pain controlled with oral medications. Breast-feeding with minimal difficulty. Objective: Vitals: Vital Signs - 24 hr 01/20/21 01/20/21 01/20/21 11:32 12:02 12:32 Temperature Pulse, 65 65 77 Peripheral Respiratory Rate Blood Pressure 117/57 L 120/57 L 115/74 O2 Sat by Pulse 95 94 L 94 L Oximetry 01/20/21 01/20/21 01/20/21 13:02 16:04 20:20 Temperature 36.8 C 36.8 C Pulse, 87 64 73 Peripheral Respiratory 15 16 Rate Blood Pressure 125/69 127/63 126/73 O2 Sat by Pulse 94 L 97 Oximetry 01/21/21 04:38 Temperature 36.8 C Pulse, 73 Peripheral Respiratory 16 Rate Blood Pressure 121/58 L O2 Sat by Pulse 96 Oximetry Physical Exam General: Alert and oriented, no acute distress Lungs: Clear to auscultation bilaterally Heart: Regular rate and rhythm Abdomen: Soft, minimal appropriate tenderness, non-distended, fundus midline, nontender and at the umbilicus Incision: Clean, dry and intact, no erythema, bleeding or drainage with Steri- Strips in place Extremities: No edema in bilateral lower extremities, no calf tenderness bilaterally Labs: Laboratory Results - last 24 hr 01/20/21 01/21/21 Range/Units 05:50 04:45 WBC 17.42 H (3.98-10.04) K/mm3 RBC 3.80 L (3.98-5.22) M/mm3 Hgb 12.4 (11.2-15.7) gm/dl Hct 37.5 (34.1-44.9) % MCV 98.7 H (79.4-94.8) fl MCH 32.6 H (25.6-32.2) pg MCHC 33.1 (32.2-35.5) g/dl RDW Std Deviation 49.9 H (36.4-46.3) fL Plt Count 452 H (182-369) K/mm3 MPV 10.9 (9.4-12.3) fl Neut % (Auto) 71.9 H (34.0-71.1) % Lymph % (Auto) 15.0 L (19.3-51.7) % Nye % (Auto) 9.9 (4.7-12.5) % Eos % (Auto) 2.5 (0.7-5.8) Baso % (Auto) 0.2 (0.1-1.2) % Neut # (Auto) 12.55 H (1.56-6.13) K/mm3 Lymph # (Auto) 2.61 (1.18-3.74) K/mm3 Nye # (Auto) 1.72 H (0.24-0.36) K/mm3 Eos # (Auto) 0.43 H (0.04-0.36) K/mm3 Baso # (Auto) 0.03 (0.01-0.08) K/mm3 Manual Slide Review Abnormal smear RPR Non-reactive (NONREACTIVE) ASSESSMENT: 30-year-old female -0-0-4 s/p repeat section POD #1 for history of section, complicated by GBS positive status, history of tobacco use and depression PLAN: Doing well Breast-feeding with minimal difficulty. Assist as needed Incision healing well. Continue to keep clean and dry. Lochia minimal. Continue to monitor for appropriate lochia. Continue routine post-operative care Anticipate discharge home tomorrow Justo Gipson MD 11:06 AM 01/21/2021
[2021-01-21] MEDS: Ibuprofen 600 MG Tab PO PRN (14:12)
[2021-01-21] MEDS: Simethicone 80 MG Tab.Chew PO PRN ×2 (15:47→21:08)
[2021-01-21] MEDS ORDERED: Docusate Sodium 100 MG Cap PO PRN (21:04)
[2021-01-22] MEDS: Ibuprofen 600 MG Tab PO PRN ×2 (00:42→06:55)
--- NOTE | 2021-01-22 08:56 | PCM.DCSUM1 ---
Discharge Summary - Hospital Course Free Text/Narrative:: Allie is a 30-year-old 4 now para 4-0-0-4 female admitted on 01/20/2021 for elective repeat section. Patient has had 3 previous sections and desired repeat section. Please see history and physical for details concerning the . She underwent section delivering a viable, duckworth, female . Please see operative report for details. Diagnosis: Stroke: No - Discharge Data Discharge Date: 01/22/21 Discharge Disposition: Home, Self-Care 01 Condition: Good - Referral to Home Health Primary Care Physician: Nolvia Llanes MD - Patient Instructions Diet: Regular Diet as Tolerated (Nursing diet with increased calories and calcium as recommended) Activity: As Tolerated (No intercourse or tampons until bleeding resolves. No lifting greater than 15 pounds or driving a car x7 to 10 days.) Driving: Do Not Drive Showering/Bathing: May Shower Wound/Incision Care: Keep Operative Site/Wound Site Clean and Dry Notify Provider of: Fever, Increased Pain, Swelling and Redness, Nausea and/or Vomiting - Discharge Plan Prescriptions/Med Rec: Acetaminophen/oxyCODONE [Percocet 325-5 MG] 2 tab PO Q6HR PRN #20 tablet PRN Reason: Pain (Severe 7-10) Home Medications: Home Meds FLUoxetine [PROzac] 20 mg PO DAILY 09/22/16 [History] Pnv No.95/Ferrous Fum/Folic AC [ Tablet] 1 each PO DAILY 08/30/18 [History] Cetirizine HCl [Zyrtec] 10 mg PO DAILY 01/19/21 [History] Omeprazole Magnesium [Prilosec Otc] 20 mg PO DAILY 01/19/21 [History] Acetaminophen/oxyCODONE [Percocet 325-5 MG] 2 tab PO Q6HR PRN #20 tablet 01/22/21 [Rx] Ibuprofen [Motrin] 600 mg PO Q6H PRN tablet 01/22/21 [Rx] Patient Handouts: Steps to Quit Smoking Referrals: Nolvia Llanes MD [Primary Care Provider] - (Patient to call to schedule for evaluation.) - Discharge Summary/Plan Comment DC Time >30 min.: No Discharge Summary/Plan Comment: Discharge instructions: 1. Discharge home 2. Diet, activity and follow-up discussed with patient. Recommend nursing diet with increased calories and calcium. 3. Precautions given concern increased pain, bleeding, temperature, signs/symptoms of DVT/PE. 4. Medications per home medication was printed, discussed with and given to the patient. 5. [facility] 2 weeks. Diagnosis: 1. Term -delivered 2. History of previous section x3 with desire for repeat section Condition: Good - Patient Data Vitals - Most Recent: Last Vital Signs Temp 36.1 C 01/22/21 03:05 Pulse 62 01/22/21 03:05 Resp 14 01/22/21 03:05 BP 130/69 01/22/21 03:05 Pulse Ox 94 L 01/22/21 03:05 Weight - Most Recent: 86.818 kg I&O - Last 24 hours: Intake & Output 01/21/21 01/22/21 01/22/21 22:59 06:59 14:59 Intake Total 240 Balance 240 Med Orders - Current: Current Medications Diphenhydramine HCl (Diphenhydramine 50 Mg/Ml Sdv) 25 mg IVPUSH Q6H PRN PRN Reason: Itching or Nausea Docusate Sodium (Docusate Sodium 100 Mg Cap) 100 mg PO BID PRN PRN Reason: Constipation Last Admin: 01/21/21 21:15 Dose: 100 mg Documented by: Ephedrine Sulfate (Ephedrine 50 Mg/Ml Sdv) 5 mg IVPUSH SEECOMMENT PRN PRN Reason: Other Ibuprofen (Ibuprofen 600 Mg Tab) 600 mg PO Q6H PRN PRN Reason: mild pain or fever Last Admin: 01/22/21 06:55 Dose: 600 mg Documented by: Naloxone HCl (Naloxone 0.4 Mg/Ml Sdv) 0.1 mg IVPUSH SEECOMMENT PRN PRN Reason: Respiratory Depression Oxycodone/Acetaminophen (Acetaminophen/Oxycodone 325-5 Mg Tab) 1 tab PO Q4H PRN PRN Reason: Pain (moderate 4-6) Last Admin: 01/22/21 03:09 Dose: 1 tab Documented by: Oxycodone/Acetaminophen (Acetaminophen/Oxycodone 325-5 Mg Tab) 2 tab PO Q4H PRN PRN Reason: Pain (severe 7-10) Last Admin: 01/21/21 21:08 Dose: 2 tab Documented by: Simethicone (Simethicone 80 Mg Tab.Chew) 80 mg PO Q4H PRN PRN Reason: gas pains Last Admin: 01/21/21 21:08 Dose: 80 mg Documented by: Discontinued Medications Bupivacaine HCl (Bupivacaine 0.5% 30 Ml Sdv) Confirm Administered Dose 30 ml .ROUTE .STK-MED ONE Stop: 01/20/21 07:31 Last Admin: 01/20/21 08:03 Dose: 17 ml Documented by: Cefazolin Sodium (Cefazolin 1 Gm Vial) Confirm Administered Dose 2 gm .ROUTE . STK-MED ONE Stop: 01/20/21 07:16 Citric Acid/Sodium Citrate (Citric Acid/Sodium Citrate Solution 30 Ml Cup) 30 ml PO ONETIME ONE Stop: 01/20/21 05:18 Last Admin: 01/20/21 07:27 Dose: 30 ml Documented by: Diphenhydramine HCl (Diphenhydramine 50 Mg/Ml Sdv) 25 mg IVPUSH Q6H PRN PRN Reason: Pruritis Stop: 01/20/21 12:00 Fentanyl (Fentanyl 100 Mcg/2 Ml Sdv) 50 mcg IVPUSH Q5M PRN PRN Reason: Pain Stop: 01/20/21 12:00 Cefazolin Sodium/Dextrose 2 gm (/ Premix) 50 mls @ 100 mls/hr IV ONETIME ONE Stop: 01/20/21 05:46 Last Admin: 01/20/21 18:21 Dose: Not Given Documented by: Oxytocin/Lactated Ringer's (Pitocin In Lr 10 Units/1,000 Ml) 10 unit in 1,000 mls @ 100 mls/hr IV ASDIRECTED [facility] Lactated Ringer's (Ringers, Lactated) 1,000 mls @ 125 mls/hr IV ASDIRECTED [facility] Last Admin: 01/20/21 06:29 Dose: 999 mls/hr Documented by: Lactated Ringer's (Ringers, Lactated) Confirm Administered Dose 2,000 mls @ as directed .ROUTE .STK-MED ONE Stop: 01/20/21 07:16 Dextrose/Lactated Ringer's (Dextrose 5%-Lactated Ringers) 1,000 mls @ 125 mls/hr IV ASDIRECTED [facility] Stop: 01/20/21 20:30 Last Admin: 01/20/21 12:30 Dose: 125 mls/hr Documented by: Ketorolac Tromethamine (Ketorolac 30 Mg/Ml Sdv) Confirm Administered Dose 30 mg .ROUTE .STK-MED ONE Stop: 01/20/21 07:24 Ketorolac Tromethamine (Ketorolac 30 Mg/Ml Sdv) 30 mg IVPUSH Q6H [facility] Stop: 01/21/21 01:31 Last Admin: 01/21/21 02:01 Dose: 30 mg Documented by: Metoclopramide HCl (Metoclopramide 10 Mg/2 Ml Sdv) 10 mg IVPUSH ONETIME ONE Stop: 01/20/21 05:18 Last Admin: 01/20/21 07:27 Dose: 10 mg Documented by: Morphine Sulfate (Morphine Pf 10 Mg/10 Ml Sdv) Confirm Administered Dose 10 mg .ROUTE .STK-MED ONE Stop: 01/20/21 07:16 Ondansetron HCl (Ondansetron 4 Mg/2 Ml Sdv) Confirm Administered Dose 4 mg .ROUTE .STK-MED ONE Stop: 01/20/21 07:16 Ondansetron HCl (Ondansetron 4 Mg/2 Ml Sdv) 4 mg IVPUSH ONETIME PRN PRN Reason: Nausea/Vomiting Stop: 01/20/21 12:00 Oxytocin (Oxytocin 10 Units/1 Ml Sdv) Confirm Administered Dose 10 unit .ROUTE .STK-MED ONE Stop: 01/20/21 07:16 Oxytocin (Oxytocin 10 Units/1 Ml Sdv) Confirm Administered Dose 10 unit .ROUTE .STK-MED ONE Stop: 01/20/21 07:23 Sodium Chloride (Sodium Chloride 0.9% 10 Ml Syringe) 10 ml FLUSH ASDIRECTED PRN PRN Reason: Keep Vein Open
[2021-01-22 09:25] VITALS: BP 137/85; PULSE 61
== END 2021-01-22 10:25 | disposition home or self-care (01) | DRG 540 ==
LOC: JD.OB 05:16
PROVIDERS: ADMIT Obstetrics & Gynecology; ATTEND Obstetrics & Gynecology
PROC: 10D00Z1 Extraction of Products of Conception, Low, Open Approach (ICD-10-PCS; principal; 2021-01-20)
DX: O34.211 Maternal care for low transverse scar from previous cesarean delivery (principal); Z37.0 Single live birth; O99.824 Streptococcus B carrier state complicating childbirth; O99.344 Other mental disorders complicating childbirth; F32.9 Major depressive disorder, single episode, unspecified; O99.334 Smoking (tobacco) complicating childbirth; F17.200 Nicotine dependence, unspecified, uncomplicated; F41.9 Anxiety disorder, unspecified; O99.52 Diseases of the respiratory system complicating childbirth; J44.9 Chronic obstructive pulmonary disease, unspecified; Z20.822 Contact with and (suspected) exposure to COVID-19; Z86.16 Personal history of COVID-19; Z68.37 Body mass index [BMI] 37.0-37.9, adult
CPT/HCPCS: 01961; 36415; 59025; 85025; 86592; 86850; 86900; 86901; A9270-GY; J0690; J1885; J2270; J2405; J2590; J2765; J3490; J7120; J7121; U0002